=== PATIENT | female | born 1945 | race Caucasian/White ===

== ENCOUNTER 2017-07-13 16:41 | Outpatient (CLI) | payer MEDICARE, OTHER | END 2017-07-13 16:42 | LOC: LAB 16:41 | PROVIDERS: ATTEND Family Medicine | DX: E03.9 Hypothyroidism, unspecified (principal) | CPT/HCPCS: 36415; 84443 ==

== ENCOUNTER 2017-07-14 11:08 | Outpatient (CLI) | payer MEDICARE, OTHER ==
[2017-07-14 11:20] LABS: BASOPHILS % 1.1 (0.0-1.5); EOSINOPHILS % 5.8 % (0.0-6.8); MEAN CORPUSCULAR HEMOGLOBIN 33.2 pg (28.0-34.0); MEAN CORPUSCULAR VOLUME 99.2 fl (80.0-100.0); MONOCYTES % 7.4 % (0.0-11.0); NEUTROPHILS # 3.2 # k/uL (1.4-7.7)
[2017-07-14 12:21] LABS: eGFR (African) > 60; eGFR (Non-African) > 60
== END 2017-07-14 11:10 ==
LOC: LAB 11:08
PROVIDERS: ATTEND Family Medicine
DX: R61 Generalized hyperhidrosis (principal)
CPT/HCPCS: 36415; 80053; 85025

== ENCOUNTER 2018-02-20 09:15 | Outpatient (CLI) | payer MEDICARE, OTHER ==
[2018-02-20 10:12] LABS: eGFR (Non-African) 43
== END 2018-02-20 09:39 ==
LOC: LAB 09:15
PROVIDERS: ATTEND Family Medicine
DX: I10 Essential (primary) hypertension (principal)
CPT/HCPCS: 36415; 80053; 80061

== ENCOUNTER 2018-07-13 14:00 | Outpatient (CLI) | payer MEDICARE, OTHER | END 2018-07-13 14:03 | LOC: LAB 14:00 | PROVIDERS: ATTEND Family Medicine | DX: E03.9 Hypothyroidism, unspecified (principal) | CPT/HCPCS: 36415; 84443 ==

== ENCOUNTER 2018-11-16 11:05 | Outpatient (CLI) | payer OTHER ==
--- NOTE | 2018-11-16 22:53 | Diagnostic Imaging Report ---
[facility] [address] [facility] [address] [address] Report Submission Date: Nov 16, 2018 3:10:17 PM POSTAL DELIVERY OFFICER Patient Study Name: JOSE J BURNS Date: Nov 16, 2018 11:47:32 AM POSTAL DELIVERY OFFICER Modality Type: DX Gender: F Description: SHOULDER : 47 Institution: [facility] Physician: MO[facility]ST[facility] CREWS Examination: Plain film right shoulder History: RT SHOULDER, RT SHOULDER PAIN X6 MONTHS, NO KNOWN INJURY Comparison exams: None provided Findings: 3 views of the right shoulder demonstrates mild degenerative spurring. No evidence for fracture or dislocation. No soft tissue abnormality Impression: Degenerative changes. No acute osseous process. Electronically signed on Nov 16, 2018 3:10:17 PM POSTAL DELIVERY OFFICER by: Tico BRANCH
== END 2018-11-16 11:06 ==
LOC: RAD 11:05
PROVIDERS: ATTEND Family Medicine
DX: G89.29 Other chronic pain (principal); M25.511 Pain in right shoulder
CPT/HCPCS: 73030